=== PATIENT | male | born 1955 | race Caucasian/White ===

== ENCOUNTER 2021-01-25 09:42 | Outpatient (CLI) | payer MEDICARE ==
[2021-01-25 11:25] LABS: Hemoglobin 13.5 g/dL (13.5-17.5); Mean Corpuscular HGB CONC 33.1 g/dL (32.0-36.0); Mean Corpuscular Hemoglobin 30.1 pg (27.0-33.0); Mean Corpuscular Volume 90.9 fl (81.2-95.1); Mean Platelet Volume 10.2 fl (7.4-10.4); Platelet Count 265 10x3/uL (150-450); RBC Distribution Width 12.7 % (11.5-14.5); Red Blood Cell (RBC) Count 4.49 10x6/uL (4.32-5.72); White Blood Cell (WBC) Count 8.5 10x3/uL (3.5-10.5)
[2021-01-25 11:38] LABS: INR-International Normal Ratio 0.9; PTT 28.2 sec (22.0-33.0); Prothrombin Time 10.3 sec (9.5-12.1)
[2021-01-25 11:46] LABS: Anion Gap 16 mmol/L (10-20); BUN (Urea Nitrogen) 13 mg/dL (8.4-25.7); Calc. Creatinine Clearance 0 mL/min (70-130); Calcium 9.5 mg/dL (7.8-10.44); Carbon Dioxide 22 mmol/L (23-31); Chloride 104 mmol/L (98-107); Glucose 202 mg/dL (80-115); Potassium 4.3 mmol/L (3.5-5.1); Sodium 138 mmol/L (136-145)
[2021-01-26 08:05] LABS: SARS-CoV-2 PCR by NAA Not Detected (NotDetected)
== END 2021-01-25 09:43 | disposition home or self-care (01) ==
LOC: LABBT 09:42
PROVIDERS: ATTEND Neurological Surgery
DX: Z01.812 Encounter for preprocedural laboratory examination (principal); M43.16 Spondylolisthesis, lumbar region; M48.061 Spinal stenosis, lumbar region without neurogenic claudication; Z20.822 Contact with and (suspected) exposure to COVID-19
CPT/HCPCS: 80048; 85027; 85610; 85730; U0003; U0005

== ENCOUNTER 2021-01-28 05:20 | Inpatient (IN) | payer MEDICARE, OTHER ==
[2021-01-26 15:24] VITALS: BMI 39.3
[2021-01-28] MEDS ORDERED: Bupivacaine PF 0.5% 30 ML VIAL ONE (06:11)
[2021-01-28] MEDS ORDERED: EPINEPHrine 1 MG/ML AMP ONE (06:11)
[2021-01-28] MEDS ORDERED: Thrombin 5000 UNITS/5 ML VIAL ONE ×2 (06:11→07:07)
[2021-01-28] MEDS ORDERED: Neomycin-Polymyxin 1 ML AMP ONE (06:11)
[2021-01-28] MEDS ORDERED: ceFAZolin 2 GM/DEX 5% 100 ML BAG ONE (06:11)
[2021-01-28] MEDS ORDERED: Fentanyl 250 MCG/5 ML VIAL ONE (06:40)
[2021-01-28] MEDS ORDERED: Ketamine 50 MG/ML (10ML VIAL) ONE (06:40)
[2021-01-28] MEDS ORDERED: Albumin 5% 500 ML ONE (06:41)
[2021-01-28] MEDS ORDERED: Dexmedetomidine 200 MCG/2 ML VIAL ONE (06:41)
[2021-01-28] MEDS ORDERED: Dexamethasone 20 MG/5 ML VIAL ONE (07:07)
[2021-01-28] MEDS ORDERED: Sodium Bicarb 50 MEQ/50 ML Abboject 8.4% SYRINGE ONE (07:07)
[2021-01-28] MEDS ORDERED: Lidocaine 1% PF 5 ML VIAL ONE (07:07)
[2021-01-28] MEDS ORDERED: Ondansetron PF 4 MG/2 ML Vial ONE (07:07)
[2021-01-28] MEDS ORDERED: Vecuronium 10 MG VIAL ONE (07:07)
[2021-01-28] MEDS ORDERED: Cardioplegic Soln 1,000 ML BAG ONE (07:07)
[2021-01-28] MEDS ORDERED: Metoclopramide HCl 10 MG/2 ML VIAL ONE (07:07)
[2021-01-28] MEDS ORDERED: Rocuronium Bromide 10 MG/ML (10ML VIAL) ONE (07:07)
[2021-01-28] MEDS ORDERED: Aminocaproic Acid 5 GM/20 ML VIAL ONE (07:07)
[2021-01-28] MEDS ORDERED: Nitroglycerin 50 MG/250 ML BOT ONE (07:07)
[2021-01-28] MEDS ORDERED: Mannitol 12.5 GM/50 ML ONE (07:07)
[2021-01-28] MEDS ORDERED: ePHEDrine 50 MG/ML VIAL ONE (07:07)
[2021-01-28] MEDS ORDERED: Magnesium Sulfate 1 GM/2 ML VIAL ONE (07:07)
[2021-01-28] MEDS ORDERED: Heparin 30,000 units/30 ml VIAL ONE (07:07)
[2021-01-28] MEDS ORDERED: Potassium Chloride 60 MEQ/30 ML VIAL ONE (07:07)
[2021-01-28] MEDS ORDERED: Protamine Sulfate 250 MG/25 ML VIAL ONE (07:07)
[2021-01-28] MEDS ORDERED: Calcium Chloride 1 GM/10 ML Abboject SYRINGE ONE (07:07)
[2021-01-28] MEDS ORDERED: Lidocaine 2% PF 100 mg/5 ml Syringe ONE (07:07)
[2021-01-28] MEDS ORDERED: PROPOFOL 200 MG/20 ML VIAL ONE (07:07)
[2021-01-28] MEDS ORDERED: Fentanyl 100 MCG/2 ML VIAL ONE ×2 (13:22→14:40)
[2021-01-28] MEDS ORDERED: SUGAMMADEX SODIUM 200 MG/2 ML VIAL ONE (14:00)
[2021-01-28] MEDS ORDERED: Ondansetron PF 4 MG/2 ML Vial IVP PRN (14:09)
[2021-01-28] MEDS ORDERED: HYDROcodone/Acetaminophen 7.5/325 mg Tablet PO PRN (14:09)
[2021-01-28] MEDS ORDERED: Acetaminophen 325 MG TAB PO PRN (14:09)
[2021-01-28] MEDS ORDERED: Milk Of Magnesia 30 ML UDCUP PO PRN (14:09)
[2021-01-28] MEDS ORDERED: Mag-Al 1200 mg/1200 mg/30 ML UDCUP PO PRN (14:09)
[2021-01-28] MEDS ORDERED: diphenhydrAMINE 50 MG/ML VIAL IVP PRN (14:09)
[2021-01-28] MEDS ORDERED: Promethazine HCl 25 MG/ML VIAL IM PRN (14:09)
[2021-01-28] MEDS ORDERED: Labetalol HCl 100 MG/20 ML VIAL ONE (14:40)
[2021-01-28] MEDS: Sodium Chloride 0.9% 1,000 ML IV SCH (16:52)
[2021-01-28] MEDS ORDERED: Dextrose 5% in Water 1,000 ML IV PRN (18:31)
[2021-01-28] MEDS ORDERED: Dextrose 50% Abboject 50 ML SYRINGE SLOW IVP PRN (18:31)
[2021-01-28] MEDS: ceFAZolin Sodium/D5W 2 GM in Premix Bag 1 BAG IVPB SCH (20:17)
[2021-01-28] MEDS: Atorvastatin Calcium 10 MG TAB PO SCH (20:17)
[2021-01-28] MEDS: Lisinopril 10 MG TAB PO SCH (20:18)
[2021-01-28] MEDS: HYDROcodone/Acetaminophen 10/325 mg Tablet PO PRN (20:41)
[2021-01-28] MEDS: HumaLOG 300 UNITS/3 ML VIAL SC PRN (20:43)
[2021-01-28] MEDS: tiZANidine HCl 4 MG TAB PO PRN (20:43)
[2021-01-29] MEDS: HYDROcodone/Acetaminophen 10/325 mg Tablet PO PRN ×5 (00:49→22:11)
[2021-01-29] MEDS: Morphine 4 MG/ML VIAL SLOW IVP PRN ×4 (02:05→19:19)
[2021-01-29] MEDS: ceFAZolin Sodium/D5W 2 GM in Premix Bag 1 BAG IVPB SCH (04:23)
[2021-01-29] MEDS: Sodium Chloride 0.9% 1,000 ML IV SCH ×2 (04:24→15:59)
[2021-01-29] MEDS: HumaLOG 300 UNITS/3 ML VIAL SC PRN ×3 (05:14→17:05)
[2021-01-29] MEDS: tiZANidine HCl 4 MG TAB PO PRN ×3 (05:20→18:20)
[2021-01-29 08:02] LABS: #Lymphocytes 0.7 thou/uL (1.20-3.40); #Monocytes 1.2 thou/uL (0.11-0.59); #Neutrophils 11.8 thou/uL (1.40-6.50); %Basophils 0.1 % (0.0-1.0); %Eosinophils 0.1 % (0.0-10.0); %Lymphocytes 5.2 % (21.0-51.0); %Neutrophils 85.7 % (42.0-75.0); Hemoglobin 10.9 g/dL (14.0-18.0); Mean Corpuscular Hemoglobin 31.4 pg (27.0-31.0); Mean Corpuscular Volume 95.3 fL (78.0-98.0); Mean Platelet Volume 7.9 fL (7.4-10.4); Platelet Count 222 thou/uL (130-400); RBC Distribution Width 12.2 % (11.5-14.5); Red Blood Cell (RBC) Count 3.48 mill/uL (4.70-6.10); White Blood Cell (WBC) Count 13.8 thou/uL (4.8-10.8)
[2021-01-29] MEDS: metFORMIN 500 MG TAB PO SCH ×2 (08:15→16:02)
[2021-01-29 08:20] LABS: Anion Gap 14 mmol/L (10-20); BUN (Urea Nitrogen) 25 mg/dL (8.4-25.7); Calc. Creatinine Clearance 85 mL/min (70-130); Calcium 8.5 mg/dL (7.8-10.44); Carbon Dioxide 21 mmol/L (23-31); Chloride 105 mmol/L (98-107); Glucose 211 mg/dL (80-115); Potassium 4.6 mmol/L (3.5-5.1); Sodium 135 mmol/L (136-145)
[2021-01-29] MEDS: Empagliflozin 25 MG TAB PO SCH ×2 (09:06→16:02)
[2021-01-29] MEDS: Acetaminophen/Codeine 30-300mg Tablet PO PRN ×2 (11:45→16:01)
[2021-01-29] MEDS: Gabapentin 300 MG CAP PO SCH ×2 (14:26→20:11)
[2021-01-29] MEDS: Lisinopril 10 MG TAB PO SCH (20:11)
[2021-01-29] MEDS: Atorvastatin Calcium 10 MG TAB PO SCH (20:11)
[2021-01-29] MEDS: Lantus 1000 UNITS/10 ML VIAL SC SCH (20:13)
[2021-01-29] MEDS ORDERED: Morphine 4 MG/ML VIAL SLOW IVP SCH (22:02)
[2021-01-30] MEDS: HYDROcodone/Acetaminophen 10/325 mg Tablet PO PRN ×2 (06:05→12:14)
[2021-01-30] MEDS: Sodium Chloride 0.9% 1,000 ML IV SCH ×2 (06:34→20:39)
[2021-01-30] MEDS: Empagliflozin 25 MG TAB PO SCH ×2 (09:12→17:50)
[2021-01-30] MEDS: Gabapentin 300 MG CAP PO SCH ×3 (09:13→20:39)
[2021-01-30] MEDS: tiZANidine HCl 4 MG TAB PO PRN (09:15)
[2021-01-30] MEDS: metFORMIN 500 MG TAB PO SCH ×2 (09:15→17:50)
[2021-01-30] MEDS: Lantus 1000 UNITS/10 ML VIAL SC SCH ×2 (09:55→20:43)
[2021-01-30] MEDS: HumaLOG 300 UNITS/3 ML VIAL SC PRN ×2 (12:15→17:51)
[2021-01-30] MEDS: Atorvastatin Calcium 10 MG TAB PO SCH (20:39)
[2021-01-30] MEDS: Lisinopril 10 MG TAB PO SCH (20:45)
[2021-01-31] MEDS: HYDROcodone/Acetaminophen 10/325 mg Tablet PO PRN ×4 (01:48→20:58)
[2021-01-31] MEDS: tiZANidine HCl 4 MG TAB PO PRN ×2 (03:10→13:46)
[2021-01-31] MEDS: Morphine 4 MG/ML VIAL SLOW IVP PRN (03:11)
[2021-01-31] MEDS: metFORMIN 500 MG TAB PO SCH ×2 (07:40→18:10)
[2021-01-31] MEDS: Empagliflozin 25 MG TAB PO SCH ×2 (07:41→18:09)
[2021-01-31] MEDS: Gabapentin 300 MG CAP PO SCH ×3 (08:48→20:51)
[2021-01-31] MEDS: Lantus 1000 UNITS/10 ML VIAL SC SCH ×2 (08:50→21:01)
[2021-01-31] MEDS: Sodium Chloride 0.9% 1,000 ML IV SCH (17:55)
[2021-01-31] MEDS: HumaLOG 300 UNITS/3 ML VIAL SC PRN (18:10)
[2021-01-31] MEDS: Atorvastatin Calcium 10 MG TAB PO SCH (20:50)
[2021-02-01] MEDS: Sodium Chloride 0.9% 1,000 ML IV SCH ×2 (05:46→11:03)
[2021-02-01] MEDS: Empagliflozin 25 MG TAB PO SCH (08:29)
[2021-02-01] MEDS: metFORMIN 500 MG TAB PO SCH (08:30)
[2021-02-01] MEDS: Gabapentin 300 MG CAP PO SCH ×2 (08:30→15:55)
[2021-02-01] MEDS: Acetaminophen/Codeine 30-300mg Tablet PO PRN (08:31)
[2021-02-01] MEDS: Lantus 1000 UNITS/10 ML VIAL SC SCH (08:31)
[2021-02-01] MEDS: HumaLOG 300 UNITS/3 ML VIAL SC PRN (11:42)
[2021-02-01] MEDS: tiZANidine HCl 4 MG TAB PO PRN (11:49)
[2021-02-01 16:30] VITALS: BP 130/73; TEMP 98.4
== END 2021-02-01 16:30 | DRG 455 ==
LOC: SDC 05:20 → SURG A 14:09
PROVIDERS: ADMIT Neurological Surgery; ATTEND Internal Medicine
PROC: 0SG30AJ Fusion of Lumbosacral Joint with Interbody Fusion Device, Posterior Approach, Anterior Column, Open Approach (ICD-10-PCS; principal; 2021-01-28)
PROC: 0SG3071 Fusion of Lumbosacral Joint with Autologous Tissue Substitute, Posterior Approach, Posterior Column, Open Approach (ICD-10-PCS; 2021-01-28)
PROC: 01NB0ZZ Release Lumbar Nerve, Open Approach (ICD-10-PCS; 2021-01-28)
PROC: 01NR0ZZ Release Sacral Nerve, Open Approach (ICD-10-PCS; 2021-01-28)
PROC: 0SB40ZZ Excision of Lumbosacral Disc, Open Approach (ICD-10-PCS; 2021-01-28)
DX: M48.062 Spinal stenosis, lumbar region with neurogenic claudication (principal); M43.17 Spondylolisthesis, lumbosacral region; M54.16 Radiculopathy, lumbar region; M19.90 Unspecified osteoarthritis, unspecified site; E78.5 Hyperlipidemia, unspecified; E11.42 Type 2 diabetes mellitus with diabetic polyneuropathy; M62.838 Other muscle spasm; I10 Essential (primary) hypertension; Z96.612 Presence of left artificial shoulder joint; Z96.611 Presence of right artificial shoulder joint; Z98.890 Other specified postprocedural states; Z79.4 Long term (current) use of insulin; Z79.899 Other long term (current) drug therapy; Z87.891 Personal history of nicotine dependence; M43.16 Spondylolisthesis, lumbar region; Z20.822 Contact with and (suspected) exposure to COVID-19
CPT/HCPCS: 36415; 36416; 76000; 80048; 83880; 85025; 85027; 85610; 85730; 86850; 86900; 86901; C1713; C1768; C1776; J0171; J1100; J1644; J1815; J2001; J2150; J2270; J2405; J2704; J2720; J2765; J3010; J3370; J3475; J3480; J3490; J7050; P9045; S0017; S0020; U0003; U0005

== ENCOUNTER 2021-03-29 13:04 | Outpatient (CLI) | payer MEDICARE, OTHER | END 2021-03-29 13:05 | disposition home or self-care (01) | LOC: BICRAD 13:04 | PROVIDERS: ATTEND Neurological Surgery | DX: M43.16 Spondylolisthesis, lumbar region (principal); Z98.1 Arthrodesis status | CPT/HCPCS: 72100 ==

== ENCOUNTER 2021-09-23 10:12 | Outpatient (CLI) | payer MEDICARE, OTHER | END 2021-09-23 10:13 | disposition home or self-care (01) | LOC: SCSRAD 10:12 | PROVIDERS: ATTEND Family Medicine | DX: R10.12 Left upper quadrant pain (principal) | CPT/HCPCS: 36415; 74018; 80053; 85025 ==